=== PATIENT | female | born 1975 | race American Indian/Alaskan Native ===

== ENCOUNTER 2023-04-19 10:04 | Emergency (ER) | payer MEDICAID, SELFPAY ==
[2023-04-19] VITALS (7 sets, daily range): BP systolic 115–136; BP diastolic 77–85; PULSE 46–82; RESP 20–22; TEMP 36.6–36.8; O2SAT 94–100
[2023-04-19] MEDS: OXYCODONE IR 5 MG TABLET PO (10:35)
[2023-04-19] MEDS: diazePAM 2 MG TABLET PO (10:35)
[2023-04-19] MEDS: KETOROLAC 30 MG/ML VIAL IV (10:35)
--- NOTE | 2023-04-19 11:02 | ED.BACK ---
HPI - Back Pain/Injury General Chief Complaint: Back Pain/Injury Stated Complaint: Fall/Back Pain Time Seen by Provider: 04/19/23 10:05 Source: patient and EMS History of Present Illness HPI Narrative: 48-year-old female with a history of back pain followed by spine surgery at [facility] has a planned lumbar fusion, arrives by EMS after she twisted while standing and felt the abrupt onset of pain in her low back radiating down in her right leg. No fevers no traumatic injury no problems with bowel or bladder control. Additional history was obtained from EMS. Patient received fentanyl and midazolam pre-hospital. Related Data Allergies Allergy/AdvReac Type Severity Reaction Status Date / Time codeine Allergy Unknown Verified 04/19/23 11:10 Patient History Social History Smoking Status: Never smoker Smoking Status: Never smoker alcohol intake frequency: holidays/special occasions only Substance Use Type: does not use Exam Initial Vital Signs Initial Vital Signs: Vital Signs Pulse Rate 69 04/19/23 10:09 Pulse Oximetry 94 04/19/23 10:09 Const General: cooperative, in distress and anxious HENMD Head: normocephalic and atraumatic Neck Neck: supple Resp Effort & Inspection: normal respiratory effort Back/Spine/Pelvis Other: Diffuse lumbar and sacral tenderness without step-off or focal tenderness. Skin General: dry skin and warm Neuro Motor: strength 5/5 throughout and no movement abnormalities noted DTR's: Rt Patellar: 2+, Lt Patellar: 2+, Rt Ankle: 1+ and Lt Ankle: 1+ Course Orders Ordered: Discontinued Medications Diazepam (Diazepam 2 Mg Tablet) 2 mg PO NOW ONE Stop: 04/19/23 10:27 Last Admin: 04/19/23 10:35 Dose: 2 mg Documented By: MPO Ketorolac Tromethamine (Ketorolac 30 Mg/Ml Vial) 30 mg IV NOW ONE Stop: 04/19/23 10:27 Last Admin: 04/19/23 10:35 Dose: 30 mg Documented By: MPO Oxycodone HCl (Oxycodone Ir 5 Mg Tablet) 5 mg PO NOW ONE Stop: 04/19/23 10:27 Last Admin: 04/19/23 10:35 Dose: 5 mg Documented By: MPO Reevaluation(s) Reevaluation #1: Symptoms are improved after Toradol and diazepam. Discussed recommendations for home care and indications to return, patient has a family member here that will be driving her home Vital Signs Vital signs: Vital Signs - 8 hr 04/19/23 10:12 04/19/23 10:16 Temperature 98.3 F 98.3 F Pulse Rate 77 46 L Respiratory Rate 22 20 Blood Pressure 136/85 136/85 Pulse Oximetry 100 99 Oxygen Delivery Method Room Air Room Air MDM - Back Pain/Injury Medical Records Medical records narrative: 48-year-old female with chronic back pain presenting with an acute exacerbation not related trauma and without red flag features. No evidence to suggest cauda equina syndrome or infection. I started her on scheduled nonsteroidals and recommended she follow up with her spine surgeon soon. Discharge Plan Departure Patient Disposition: Home Clinical Impression: Acute back pain with sciatica Instructions: DI for Back Spasm Activity Restrictions/Additional Instructions: I think it is safe for you to go home, examination is reassuring and your history does not suggest severe problem. Follow up soon with your poison information specialist. I recommend the use ibuprofen regularly for a few days. Ibuprofen (motrin or advil) should be dosed at 600mg (3 non-prescription tablets) every 6 hours. Taking this on a scheduled basis is more effective. It is a good idea to take this with food. Use this with caution if you have a history of bleeding ulcers or renal disease.. You can also use acetaminophen (Tylenol) as needed. Acetaminophen (tylenol) should be dosed at 650 mg every 4 hours or 1000mg every 6 hours. It can be given as needed but is more effective if given on a scheduled basis. Total daily dose should not exceed 4,000mg. If you were prescribed norco (hydrocodone/apap) or percocet (oxycodone/apap) each tablet of these contains 325 mg of acetaminophen and should be included when calculating daily dose. Use your Rapelje and your muscle relaxer if needed. Ice and or heat if they are helpful, activity as tolerated, it is important to get up and move around some during the day. If you are having fevers, inability to urinate or other acute symptoms recheck in the emergency department. Stand Alone Forms: Patient Portal/API
--- NOTE | 2023-04-19 11:03 | PC.NURSE ---
pt arrived via EMS because she was vacuuming and felt a pop in her lower back and fell to the groud. Pt reports that she went down because of her pain. 9/10 pain in her low back and describes as her low back on fire. Pt states that her right leg is tinglig and numb and that sensation feels different on the right side than on the left. Hx of degenerative disease in her lower back for which she takes hydrocodone and lyrica and currently awaiting L5S1 fusion and bulging disc release. Strong bilateral pedal pulses upon palpation. Denies loss of bladder and bowel control. Denies cp, sob, n/v. A&Ox4.
== END 2023-04-19 11:37 | disposition home or self-care (01) ==
PROVIDERS: Emergency Provider Emergency Medicine
DX: M54.41 Lumbago with sciatica, right side (principal)
CPT/HCPCS: 96374; 99284; J1885